=== PATIENT | female | born 2000 | race Caucasian/White ===

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

== ENCOUNTER 2020-02-28 05:00 | Emergency (ER) | payer BC, MEDICAID ==
[2020-02-28] MEDS ORDERED: TORAdol 30 mg Injection ONE (05:18)
[2020-02-28] MEDS ORDERED: TORAdol 30 mg Injection IM ONE (05:33)
[2020-02-28 06:06] VITALS: BP 120/69; PULSE 82; O2SAT 100
[2020-02-28] MEDS ORDERED: ZOFRAN ODT 4 MG PO ONE (06:24)
[2020-02-28] MEDS ORDERED: Norco 10/325 MG Tablet PO ONE (06:24)
[2020-02-28] MEDS ORDERED: ZOFRAN ODT 4 MG ONE (06:25)
[2020-02-28] MEDS ORDERED: Norco 10/325 MG Tablet ONE (06:26)
--- NOTE | 2020-02-28 06:30 | ERPHSYRPT ---
- History of Present Illness Time Seen by Provider: 02/28/20 05:25 Source: patient Exam Limitations: no limitations Patient Subjective Stated Complaint: pt states that she was going down a step at home when she lost her footing and fell on her left knee, pt states that she took tylenol at 2300 for the pain, pt states that she went to work but the pain has worsen as the night went on, pt states that her left knee has continued to swell through the night Triage Nursing Assessment: pt drove herself to the er, pt came into the er via wheelchair, pt is axo x3, pt c/o left knee pain, states pain 6/10, knee is swollen, bruising present, decreased ROM, tenderness with palpation, contusion to left knee, vital wnl Allergies/Adverse Reactions: cefdinir [From Omnicef] Allergy (Verified 02/28/20 05:12) Hx Tetanus, Diphtheria Vaccination/Date Given: No Hx Influenza Vaccination/Date Given: No Hx Pneumococcal Vaccination/Date Given: No Immunizations Up to Date: Yes Travel Risk - International Travel Have you traveled outside of the country in past 3 weeks: No - Coronavirus Screening Are you exhibiting any of the following symptoms?: No Close contact with a COVID-19 positive Pt in past 14-21 Days: No - Past Medical History Pertinent Past Medical History: Yes Neurological History: No Pertinent History ENT History: No Pertinent History Cardiac History: No Pertinent History Respiratory History: No Pertinent History Endocrine Medical History: No Pertinent History Musculoskeletal History: No Pertinent History GI Medical History: No Pertinent History History: Other Psycho-Social History: No Pertinent History Female Reproductive Disorders: No Pertinent History Other Medical History: history of histoplasmosis, kidney stones - Past Surgical History Past Surgical History: Yes Other Surgical History: bilat tubes - Social History Smoking Status: Former smoker Exposure to second hand smoke: No Drug Use: none Patient Lives Alone: No - Female History Hx Now: No - Nursing Vital Signs Nursing Vital Signs: Initial Vital Signs Temperature 98.1 F 02/28/20 05:14 Pulse Rate 86 02/28/20 05:14 Respiratory Rate 16 02/28/20 05:14 Blood Pressure 138/89 02/28/20 05:14 O2 Sat by Pulse Oximetry 98 02/28/20 05:14 Pain Scale Pain Intensity 6 - Physical Exam SpO2: 100 - Course Nursing assessment & vital signs reviewed: Yes Ordered Tests: Active Orders 24 hr Category Date Time Status KNEE (3 VIEWS) Stat Exams 02/28/20 05:49 Taken Medication Summary Generic Name Dose Route Start Last Admin Trade Name Rosemary PRN Reason Stop Dose Admin Hydrocodone Bitart/Acetaminophen 1 tab 02/28/20 06:24 Vera 10/325 Mg Tablet PO 02/28/20 06:25 STAT ONE Ondansetron HCl 4 mg 02/28/20 06:24 Zofran Odt 4 Mg PO 02/28/20 06:25 STAT ONE Discontinued Medications Generic Name Dose Route Start Last Admin Trade Name Rosemary PRN Reason Stop Dose Admin Ketorolac Tromethamine Confirm 02/28/20 05:18 Toradol 30 Mg Injection Administered 02/28/20 05:19 Dose 30 mg .ROUTE .STK-MED ONE Ketorolac Tromethamine 30 mg 02/28/20 05:33 02/28/20 05:35 Toradol 30 Mg Injection IM 02/28/20 05:34 30 mg STAT ONE Administration - Progress Progress: improved, pain not gone completely Counseled pt/family regarding: diagnosis, need for follow-up, rad results - Departure Departure Disposition: Home Clinical Impression: Contusion, knee Qualifiers: Encounter type: initial encounter Laterality: left Qualified Code(s): S80.02XA - Contusion of left knee, initial encounter Condition: Stable Critical Care Time: No Referrals: AKIRA CONROY [Primary Care Provider] - (2 days for reevaluation) DEWEY VAUGHN NP [NON-STAFF PHY W/O PRIVILEGES] - (2 days for reevaluation.) Instructions: Knee Sprain (DC) Additional Instructions: Take pain medications as needed. Follow-up with orthopedic clinic for reevaluation in 2 days. Apply ice. Return to ER for any worsening. Prescriptions: Hydrocodone/Acetaminophen [Vera 7.5-325 Tablet] 1 tab PO Q4-6HPRN PRN 3 Days #12 tablet MDD 6 PRN Reason: Pain
--- NOTE | 2020-03-01 07:37 | XRAY ---
Indication: Pain following injury. Comparison: None 4 view left knee demonstrates tiny fabella. No other bony, articular, or soft tissue abnormalities.
== END 2020-02-28 06:40 | disposition home or self-care (01) ==
LOC: ED 05:00
DX: S80.02XA Contusion of left knee, initial encounter (principal); W10.9XXA Fall (on) (from) unspecified stairs and steps, initial encounter; M25.562 Pain in left knee
CPT/HCPCS: 73562; 96372; 99284; J1885; L1830; Q0162; A9270-GY

== ENCOUNTER 2020-12-29 21:15 | Observation (INO) | payer BC, MEDICAID ==
[2020-12-29 21:42] VITALS: BP 118/69; PULSE 92; O2SAT 97
[2020-12-29 22:35] LABS: Amphetamine,Urine NEGATIVE (NEGATIVE); Barbiturate,Urine NEGATIVE (NEGATIVE); Benzodiazepine,Urine NEGATIVE (NEGATIVE); Cocaine,Urine NEGATIVE (NEGATIVE); Methadone,Urine NEGATIVE (NEGATIVE); Opiate,Urine NEGATIVE (NEGATIVE); PCP,Urine NEGATIVE (NEGATIVE); THC,Urine POSITIVE (NEGATIVE)
[2020-12-29 22:47] LABS: Appearance SLIGHTLY CLOUDY (CLEAR); Bilirubin NEGATIVE (NEGATIVE); Blood NEGATIVE Ery/ul (0-5); Epithelial Cells FEW /HPF (FEW); Glucose NEGATIVE (NEGATIVE); Ketones NEGATIVE (NEGATIVE); Leukocyte Esterase LARGE (NEGATIVE); Mucus SLIGHT /HPF (NEGATIVE); Nitrite NEGATIVE (NEGATIVE); Protein,Urine Dip NEGATIVE (Negative); Specific Gravity 1.009 (1.005-1.025); Urobilinogen 4 mg/dL (0-1)
[2020-12-29] MEDS ORDERED: Lactated Ringers 500 ML IV ONE ×2 (23:06→23:10)
[2020-12-29] MEDS ORDERED: Zofran 4 MG/2 ML VIAL IV ONE (23:07)
[2020-12-29] MEDS ORDERED: Zofran 4 MG/2 ML VIAL ONE (23:09)
[2020-12-29 23:58] LABS: Absolute Neutrophil Ct (ANC) 9.28 (1.4-6.9); BASOPHIL % 0.2 % (0.0-0.4); Basophil (Absolute #) 0.02 (0-0.4); Eosinophil % 0.3 % (0.00-5.0); Eosinophil (Absolute #) 0.04 (0-0.5); Hematocrit 35.1 % (35-47); Hemoglobin 11.6 gm/dl (12.0-16.0); Lymphocyte (Absolute #) 2.34 (1.0-4.6); Lymphocytes % 18.5 % (24.0-44.0); Mean Cell Volume 90.2 fl (78-100); Mean Corpuscular Hemoglobin 29.8 pg (26-32); Mean Platelet Volume 10.1 fl (7.5-11.0); Monocyte (Absolute #) 0.94 (0.0-1.3); Monocytes % 7.4 % (0.0-12.0); Neutrophil % 73.6 % (36.0-66.0); Platelet Count 283 K/mm3 (150-450); Red Blood Count 3.89 M/mm3 (4.1-5.4); Red Cell Distribution Width 13.1 % (11.5-14.0); White Blood Count 12.6 K/mm3 (4.0-10.5)
[2020-12-30 00:07] LABS: ALBUMIN 3.8 g/dL (3.5-5.0); ALKALINE PHOSPHATASE 92 U/L (38-126); ANION GAP 12.6 MEQ/L (5-15); BLOOD UREA NITROGEN 5 mg/dL (7-17); CHLORIDE 108 mmol/L (98-107); Calcium 8.8 mg/dL (8.4-10.2); Carbon Dioxide 19 mmol/L (22-30); Creatinine 1 0.44 mg/dL (0.52-1.04); EST GLOMERULAR FILTRATION RATE > 60.0 ML/MIN; Glucose 80 mg/dL (74-106); Potassium 3.6 mmol/L (3.5-5.1); SGOT/AST 25 U/L (14-36); SGPT/ALT 8 U/L (0-35); SODIUM 135 mmol/L (137-145)
[2020-12-30] MEDS ORDERED: ROCEPHIN 1 Gm-D5w 50 ml Bag** 1 G/50 ML IVPB IV SCH (10:00)
== END 2020-12-30 01:20 | disposition home or self-care (01) ==
LOC: MED SURG 21:15
PROVIDERS: ADMIT Obstetrics & Gynecology; ATTEND Obstetrics & Gynecology
DX: O26.892 Other specified pregnancy related conditions, second trimester (principal); Z3A.21 21 weeks gestation of pregnancy; R10.9 Unspecified abdominal pain
CPT/HCPCS: 36415; 80053; 80307; 81001; 85025; 87086; G0378; J0696; J2405

== ENCOUNTER 2021-04-19 17:27 | Inpatient (IN) | payer BC, MEDICAID ==
[2021-04-19] MEDS ORDERED: PITOCIN 30 UNITS/ LR 500 ML 30 UNITS/500 ML IV.SOLN. IV SCH (17:30)
[2021-04-19] MEDS: MOTRIN 400 MG PO PRN (19:41)
[2021-04-19] MEDS ORDERED: LANSINOH 40 GM TOP PRN (20:08)
[2021-04-19] MEDS ORDERED: NORCO 5/325 MG PO PRN (20:08)
[2021-04-19] MEDS ORDERED: Dulcolax 10 MG SUPP PR PRN (20:08)
[2021-04-19] MEDS ORDERED: CORTISONE 1% CREAM TP PRN (20:08)
[2021-04-19] MEDS ORDERED: Dermoplast Spray TP PRN (20:08)
[2021-04-19] MEDS ORDERED: Mylicon 80MG PO PRN (20:08)
[2021-04-19] MEDS ORDERED: Anucort-HC SUPPOSITORY PR PRN (20:08)
[2021-04-19 20:24] LABS: Absolute Neutrophil Ct (ANC) 8.03 (1.4-6.9); BASOPHIL % 0.1 % (0.0-0.4); Basophil (Absolute #) 0.01 (0-0.4); Eosinophil % 0.2 % (0.00-5.0); Eosinophil (Absolute #) 0.02 (0-0.5); Hematocrit 38.5 % (35-47); Hemoglobin 12.7 gm/dl (12.0-16.0); Lymphocyte (Absolute #) 2.45 (1.0-4.6); Lymphocytes % 21.2 % (24.0-44.0); Mean Cell Volume 88.5 fl (78-100); Mean Corpuscular Hemoglobin 29.2 pg (26-32); Mean Platelet Volume 10.9 fl (7.5-11.0); Monocyte (Absolute #) 1.05 (0.0-1.3); Monocytes % 9.1 % (0.0-12.0); Neutrophil % 69.4 % (36.0-66.0); Platelet Count 304 K/mm3 (150-450); Red Blood Count 4.35 M/mm3 (4.1-5.4); Red Cell Distribution Width 13.8 % (11.5-14.0); White Blood Count 11.6 K/mm3 (4.0-10.5)
[2021-04-19 20:37] LABS: Amphetamine,Urine NEGATIVE (NEGATIVE); Barbiturate,Urine NEGATIVE (NEGATIVE); Benzodiazepine,Urine NEGATIVE (NEGATIVE); Cocaine,Urine NEGATIVE (NEGATIVE); Methadone,Urine NEGATIVE (NEGATIVE); Opiate,Urine NEGATIVE (NEGATIVE); PCP,Urine NEGATIVE (NEGATIVE); THC,Urine NEGATIVE (NEGATIVE)
[2021-04-19] MEDS ORDERED: TRANEXAMIC ACID 1000 MG/10 ML 1,000 MG in Sodium Chloride 0.9% 100 ML BAG 100 ML IV ONE (21:51)
[2021-04-19] MEDS ORDERED: Sodium Chloride 0.9% 100 ML BAG 100 ML ONE (21:57)
[2021-04-19] MEDS ORDERED: TRANEXAMIC ACID 1000 MG/10 ML ONE (21:57)
[2021-04-19] MEDS ORDERED: Colace 100 MG PO SCH (22:00)
[2021-04-19 22:38] LABS: Hematocrit 31.7 % (35-47); Hemoglobin 10.4 gm/dl (12.0-16.0); Mean Cell Volume 89.8 fl (78-100); Mean Corpuscular Hemoglobin 29.5 pg (26-32); Mean Corpuscular Hgb Concent. 32.8 g/dl (32-36); Mean Platelet Volume 10.3 fl (7.5-11.0); Platelet Count 265 K/mm3 (150-450); Red Blood Count 3.53 M/mm3 (4.1-5.4); Red Cell Distribution Width 13.6 % (11.5-14.0)
[2021-04-19 23:16] LABS: ABO TYPING B; RH TYPING NEGATIVE
[2021-04-19 23:17] LABS: Antibody Screen POSITIVE (NEGATIVE)
[2021-04-20] MEDS: TYLENOL EXTRA STRENGTH 500 MG PO PRN ×3 (01:00→22:17)
[2021-04-20] MEDS: MOTRIN 400 MG PO PRN (02:55)
[2021-04-20] MEDS ORDERED: NORCO 5/325 MG PO PRN (05:21)
[2021-04-20 06:28] LABS: Absolute Neutrophil Ct (ANC) 7.03 (1.4-6.9); BASOPHIL % 0.1 % (0.0-0.4); Basophil (Absolute #) 0.01 (0-0.4); Eosinophil % 0.2 % (0.00-5.0); Eosinophil (Absolute #) 0.02 (0-0.5); Hematocrit 30.4 % (35-47); Hemoglobin 9.7 gm/dl (12.0-16.0); Lymphocyte (Absolute #) 2.55 (1.0-4.6); Lymphocytes % 23.8 % (24.0-44.0); Mean Cell Volume 90.2 fl (78-100); Mean Corpuscular Hemoglobin 28.8 pg (26-32); Mean Corpuscular Hgb Concent. 31.9 g/dl (32-36); Monocyte (Absolute #) 1.12 (0.0-1.3); Monocytes % 10.4 % (0.0-12.0); Neutrophil % 65.5 % (36.0-66.0); Platelet Count 249 K/mm3 (150-450); Red Blood Count 3.37 M/mm3 (4.1-5.4); Red Cell Distribution Width 13.8 % (11.5-14.0); White Blood Count 10.7 K/mm3 (4.0-10.5)
--- NOTE | 2021-04-20 07:40 | PCM.NOTE ---
Date and Time: 04/20/21 0739 Subjective Assessment: PPD 1 SP PT RESTING IN BED AND DOING WELL VSS AFEBRILE ABD; SOFT UTERUS; FIRM LOCHIA; MILD HGB; 9.7 A/P SP PPD 1 DC HOME TOMORROW FU OFFICE IN 3 WKS WITH HER PROVIDER OBJECTIVE DATA Vital Signs: Vital Signs - 24 hr Temp Pulse Resp BP BP 04/20/21 02:45 97.8 F 86 18 109/69 04/20/21 00:00 93 H 104/62 04/19/21 23:30 84 104/64 04/19/21 22:29 85 18 100/61 04/19/21 21:25 93 H 99/61 04/19/21 17:55 97.1 F 93 H 18 126/82 04/19/21 17:27 97.1 F 93 H 18 126/82 Pain Assessment - Last Documented Pain Intensity [Lower] 10 Pain Intensity 6 Pain Scale Used 0-10 Pain Scale Intake and Output: Intake & Output 04/17/21 04/18/21 04/19/21 04/20/21 11:59 11:59 11:59 11:59 Weight 92.986 kg Lab Results: Lab Results-Last 24 Hours 04/19/21 04/19/21 04/19/21 Range/Units 20:04 20:04 21:00 WBC 11.6 H (4.0-10.5) K/mm3 RBC 4.35 (4.1-5.4) M/mm3 Hgb 12.7 (12.0-16.0) gm/dl Hct 38.5 (35-47) % MCV 88.5 (78-100) fl MCH 29.2 (26-32) pg MCHC 33.0 (32-36) g/dl RDW 13.8 (11.5-14.0) % Plt Count 304 (150-450) K/mm3 MPV 10.9 (7.5-11.0) fl Gran % 69.4 H (36.0-66.0) % Eos # (Auto) 0.02 (0-0.5) Absolute Lymphs (auto) 2.45 (1.0-4.6) Absolute Monos (auto) 1.05 (0.0-1.3) Lymphocytes % 21.2 L (24.0-44.0) % Monocytes % 9.1 (0.0-12.0) % Eosinophils % 0.2 (0.00-5.0) % Basophils % 0.1 (0.0-0.4) % Absolute Granulocytes 8.03 H (1.4-6.9) Basophils # 0.01 (0-0.4) Urine Opiates Level NEGATIVE (NEGATIVE) Ur Methadone NEGATIVE (NEGATIVE) Urine Barbiturates NEGATIVE (NEGATIVE) Ur Phencyclidine (PCP) NEGATIVE (NEGATIVE) Urine Amphetamine NEGATIVE (NEGATIVE) U Benzodiazepine Level NEGATIVE (NEGATIVE) Urine Cocaine NEGATIVE (NEGATIVE) Urine Marijuana (THC) NEGATIVE (NEGATIVE) ABO Group B Rh Factor NEGATIVE Antibody Screen POSITIVE (NEGATIVE) 04/19/21 04/20/21 Range/Units 22:30 05:00 WBC 13.0 H 10.7 H (4.0-10.5) K/mm3 RBC 3.53 L 3.37 L (4.1-5.4) M/mm3 Hgb 10.4 L 9.7 L (12.0-16.0) gm/dl Hct 31.7 L 30.4 L (35-47) % MCV 89.8 90.2 (78-100) fl MCH 29.5 28.8 (26-32) pg MCHC 32.8 31.9 L (32-36) g/dl RDW 13.6 13.8 (11.5-14.0) % Plt Count 265 249 (150-450) K/mm3 MPV 10.3 11.0 (7.5-11.0) fl Gran % 65.5 (36.0-66.0) % Eos # (Auto) 0.02 (0-0.5) Absolute Lymphs (auto) 2.55 (1.0-4.6) Absolute Monos (auto) 1.12 (0.0-1.3) Lymphocytes % 23.8 L (24.0-44.0) % Monocytes % 10.4 (0.0-12.0) % Eosinophils % 0.2 (0.00-5.0) % Basophils % 0.1 (0.0-0.4) % Absolute Granulocytes 7.03 H (1.4-6.9) Basophils # 0.01 (0-0.4) Urine Opiates Level (NEGATIVE) Ur Methadone (NEGATIVE) Urine Barbiturates (NEGATIVE) Ur Phencyclidine (PCP) (NEGATIVE) Urine Amphetamine (NEGATIVE) U Benzodiazepine Level (NEGATIVE) Urine Cocaine (NEGATIVE) Urine Marijuana (THC) (NEGATIVE) ABO Group Rh Factor Antibody Screen (NEGATIVE) Multi-Disciplinary Progress Notes: Multi-Disciplinary Progress Notes 04/19/21 17:52 (created 04/19/21 18:14) Respiratory Note by Yaneth Bonilla Called to Ob for patient who is dilated to 10 that was just admitted and physician was no here yet. Baby born and crying upon .Baby dried and stimulated. O2 sat 83% and increased to 98% at 9 minutes. Apgars 8/9 Initialized on 04/19/21 18:14 - END OF NOTE Assessment/Plan (1) Vaginal delivery Current Visit: Yes Status: Acute Code(s): O80 - ENCOUNTER FOR FULL-TERM UNCOMPLICATED DELIVERY
[2021-04-20] MEDS ORDERED: FERREX 150 PO SCH (10:00)
--- NOTE | 2021-04-20 16:35 | PCM.HP ---
History of Present Illness - Chief Complaint Chief Complaint: Labor Patient History of Present Illness: is a 20 year old female. 20 yo iup 37 plus weeks with no signific pmhx presented to labor delivery being fully dilated who sees a provider in [place] for care. states her care has been uneventful. denies any medical issues at this time other than coming off quarantine from covid couple days ago vss afebrle review of system; as above physical exam lungs; cta heart; rrr abd; gravid exam; fully dilated ext; no cyanosis or edema a/p iup 37 plus weeks in labor expectant management Medications & Allergies Home Medications: Home Medication List Vits W-Ca,Fe,FA(<1Mg) [] 1 tab PO DAILY 12/29/20 [History Confirmed 04/19/21] Allergies/Adverse Reactions: Allergies Allergy/AdvReac Type Severity Reaction Status Date / Time cefdinir [From Omnicef] Allergy Verified 02/28/20 05:12 - Past Medical History Past Medical History: Yes Neurological History: No Pertinent History ENT History: No Pertinent History Cardiac History: No Pertinent History Respiratory History: No Pertinent History Endocrine Medical History: No Pertinent History Musculoskelatal History: No Pertinent History GI Medical History: No Pertinent History History: Other Pyscho-Social History: No Pertinent History Reproductive Disorders: No Pertinent History Comment: history of histoplasmosis, kidney stones - Female History Expected Date of Delivery: 05/08/21 - Past Surgical History Past Surgical History: Yes Neuro Surgical History: No Pertinent History Cardiac History: No Pertinent History Respiratory Surgery: No Pertinent History GI Surgical History: No Pertinent History Genitourinary Surgical Hx: Kidney Transplant Musculskeletal Surgical Hx: No Pertinent History Female Surgical History: No Pertinent History Other Surgical History: bilat tubes, stints for kidney stones - Social History Smoking Status: Never smoker Exposure to second hand smoke: No Alcohol: None Drug Use: none - Physical Exam Vital Signs: Vital Signs - 24 hr Temp Pulse Resp BP BP 04/20/21 08:00 98.4 F 76 18 115/63 04/20/21 02:45 97.8 F 86 18 109/69 04/20/21 00:00 93 H 104/62 04/19/21 23:30 84 104/64 04/19/21 22:29 85 18 100/61 04/19/21 21:25 93 H 9904/19/21 17:55 97.1 F 93 H 18 126/82 04/19/21 17:27 97.1 F 93 H 18 126/82 General Appearance: no apparent distress, moderate distress Respiratory Exam: normal breath sounds Cardiovascular Exam: regular rate/rhythm Gastrointestinal/Abdomen Exam: other Pelvic Exam: other Extremity Exam: normal inspection Results - Labs Lab/Micro Results: Lab Results-Last 24 Hours 04/19/21 04/19/21 04/19/21 Range/Units 20:04 20:04 21:00 WBC 11.6 H (4.0-10.5) K/mm3 RBC 4.35 (4.1-5.4) M/mm3 Hgb 12.7 (12.0-16.0) gm/dl Hct 38.5 (35-47) % MCV 88.5 (78-100) fl MCH 29.2 (26-32) pg MCHC 33.0 (32-36) g/dl RDW 13.8 (11.5-14.0) % Plt Count 304 (150-450) K/mm3 MPV 10.9 (7.5-11.0) fl Gran % 69.4 H (36.0-66.0) % Eos # (Auto) 0.02 (0-0.5) Absolute Lymphs (auto) 2.45 (1.0-4.6) Absolute Monos (auto) 1.05 (0.0-1.3) Lymphocytes % 21.2 L (24.0-44.0) % Monocytes % 9.1 (0.0-12.0) % Eosinophils % 0.2 (0.00-5.0) % Basophils % 0.1 (0.0-0.4) % Absolute Granulocytes 8.03 H (1.4-6.9) Basophils # 0.01 (0-0.4) Urine Opiates Level NEGATIVE (NEGATIVE) Ur Methadone NEGATIVE (NEGATIVE) Urine Barbiturates NEGATIVE (NEGATIVE) Ur Phencyclidine (PCP) NEGATIVE (NEGATIVE) Urine Amphetamine NEGATIVE (NEGATIVE) U Benzodiazepine Level NEGATIVE (NEGATIVE) Urine Cocaine NEGATIVE (NEGATIVE) Urine Marijuana (THC) NEGATIVE (NEGATIVE) ABO Group B Rh Factor NEGATIVE Antibody Screen POSITIVE (NEGATIVE) Screen 04/19/21 04/19/21 04/20/21 Range/Units 21:00 22:30 05:00 WBC 13.0 H 10.7 H (4.0-10.5) K/mm3 RBC 3.53 L 3.37 L (4.1-5.4) M/mm3 Hgb 10.4 L 9.7 L (12.0-16.0) gm/dl Hct 31.7 L 30.4 L (35-47) % MCV 89.8 90.2 (78-100) fl MCH 29.5 28.8 (26-32) pg MCHC 32.8 31.9 L (32-36) g/dl RDW 13.6 13.8 (11.5-14.0) % Plt Count 265 249 (150-450) K/mm3 MPV 10.3 11.0 (7.5-11.0) fl Gran % 65.5 (36.0-66.0) % Eos # (Auto) 0.02 (0-0.5) Absolute Lymphs (auto) 2.55 (1.0-4.6) Absolute Monos (auto) 1.12 (0.0-1.3) Lymphocytes % 23.8 L (24.0-44.0) % Monocytes % 10.4 (0.0-12.0) % Eosinophils % 0.2 (0.00-5.0) % Basophils % 0.1 (0.0-0.4) % Absolute Granulocytes 7.03 H (1.4-6.9) Basophils # 0.01 (0-0.4) Urine Opiates Level (NEGATIVE) Ur Methadone (NEGATIVE) Urine Barbiturates (NEGATIVE) Ur Phencyclidine (PCP) (NEGATIVE) Urine Amphetamine (NEGATIVE) U Benzodiazepine Level (NEGATIVE) Urine Cocaine (NEGATIVE) Urine Marijuana (THC) (NEGATIVE) ABO Group Rh Factor Antibody Screen (NEGATIVE) Screen SEE SEPARATE REPORT Assessment/Plan (1) Vaginal delivery Current Visit: Yes Status: Acute Code(s): O80 - ENCOUNTER FOR FULL-TERM UNCOMPLICATED DELIVERY (2) Labor abnormal Current Visit: Yes Status: Acute Code(s): O62.9 - ABNORMALITY OF FORCES OF LABOR, UNSPECIFIED (3) Current Visit: No Status: Acute Qualifiers: Weeks of gestation: 37 weeks Qualified Code(s): Z3A.37 - 37 weeks gestation of Code(s): Z34.90 - ENCNTR FOR SUPRVSN OF NORMAL , UNSP, UNSP TRIMESTER
--- NOTE | 2021-04-20 16:38 | PCM.DS ---
Discharge Summary Date of Admission: 04/19/21 17:27 Admitting Physician: HAJA MILLER DO Primary Care Provider: NO FAMILY DOCTOR Allergies Allergies cefdinir [From Omnicef] Allergy (Verified 02/28/20 05:12) Hospital Summary - Hospital Course Hospital Course: pt admitted on apr 19 for being in labor who sees a provider in [place] and denies any medical issues at this time and states care has been uneventful. pt delivered live baby boy upon arrival without complication. during period did well and had stable hgb level and at this time pt stable for discharge with fu with provider in 3 wks. all questions answered to her satisfaction. perineum intact. - Vitals & Intake/Output Vital Signs: Vital Signs Temperature 98.4 F 04/20/21 08:00 Pulse Rate 76 04/20/21 08:00 Respiratory Rate 18 04/20/21 08:00 Blood Pressure 115/63 04/20/21 08:00 O2 Sat by Pulse Oximetry Intake & Output: Intake & Output 04/18/21 04/19/21 04/20/21 04/21/21 11:59 11:59 11:59 11:59 Weight 92.986 kg - Lab Result Diagrams: 04/20/21 05:00 Lab Results-Last 24 Hrs: Lab Results-Last 24 Hours 04/19/21 04/19/21 04/19/21 Range/Units 20:04 20:04 21:00 WBC 11.6 H (4.0-10.5) K/mm3 RBC 4.35 (4.1-5.4) M/mm3 Hgb 12.7 (12.0-16.0) gm/dl Hct 38.5 (35-47) % MCV 88.5 (78-100) fl MCH 29.2 (26-32) pg MCHC 33.0 (32-36) g/dl RDW 13.8 (11.5-14.0) % Plt Count 304 (150-450) K/mm3 MPV 10.9 (7.5-11.0) fl Gran % 69.4 H (36.0-66.0) % Eos # (Auto) 0.02 (0-0.5) Absolute Lymphs (auto) 2.45 (1.0-4.6) Absolute Monos (auto) 1.05 (0.0-1.3) Lymphocytes % 21.2 L (24.0-44.0) % Monocytes % 9.1 (0.0-12.0) % Eosinophils % 0.2 (0.00-5.0) % Basophils % 0.1 (0.0-0.4) % Absolute Granulocytes 8.03 H (1.4-6.9) Basophils # 0.01 (0-0.4) Urine Opiates Level NEGATIVE (NEGATIVE) Ur Methadone NEGATIVE (NEGATIVE) Urine Barbiturates NEGATIVE (NEGATIVE) Ur Phencyclidine (PCP) NEGATIVE (NEGATIVE) Urine Amphetamine NEGATIVE (NEGATIVE) U Benzodiazepine Level NEGATIVE (NEGATIVE) Urine Cocaine NEGATIVE (NEGATIVE) Urine Marijuana (THC) NEGATIVE (NEGATIVE) ABO Group B Rh Factor NEGATIVE Antibody Screen POSITIVE (NEGATIVE) Screen 04/19/21 04/19/21 04/20/21 Range/Units 21:00 22:30 05:00 WBC 13.0 H 10.7 H (4.0-10.5) K/mm3 RBC 3.53 L 3.37 L (4.1-5.4) M/mm3 Hgb 10.4 L 9.7 L (12.0-16.0) gm/dl Hct 31.7 L 30.4 L (35-47) % MCV 89.8 90.2 (78-100) fl MCH 29.5 28.8 (26-32) pg MCHC 32.8 31.9 L (32-36) g/dl RDW 13.6 13.8 (11.5-14.0) % Plt Count 265 249 (150-450) K/mm3 MPV 10.3 11.0 (7.5-11.0) fl Gran % 65.5 (36.0-66.0) % Eos # (Auto) 0.02 (0-0.5) Absolute Lymphs (auto) 2.55 (1.0-4.6) Absolute Monos (auto) 1.12 (0.0-1.3) Lymphocytes % 23.8 L (24.0-44.0) % Monocytes % 10.4 (0.0-12.0) % Eosinophils % 0.2 (0.00-5.0) % Basophils % 0.1 (0.0-0.4) % Absolute Granulocytes 7.03 H (1.4-6.9) Basophils # 0.01 (0-0.4) Urine Opiates Level (NEGATIVE) Ur Methadone (NEGATIVE) Urine Barbiturates (NEGATIVE) Ur Phencyclidine (PCP) (NEGATIVE) Urine Amphetamine (NEGATIVE) U Benzodiazepine Level (NEGATIVE) Urine Cocaine (NEGATIVE) Urine Marijuana (THC) (NEGATIVE) ABO Group Rh Factor Antibody Screen (NEGATIVE) Screen SEE SEPARATE REPORT - Procedures and Test Procedures and Tests throughout Hospitalization: Therapy Orders & Screens 04/19/21 18:17 Standby STAT Comment: Final Diagnosis/Problem List - Final Discharge Diagnosis/Problem (1) Vaginal delivery Current Visit: Yes Status: Acute Code(s): O80 - ENCOUNTER FOR FULL-TERM UNCOMPLICATED DELIVERY (2) Labor abnormal Current Visit: Yes Status: Acute Code(s): O62.9 - ABNORMALITY OF FORCES OF LABOR, UNSPECIFIED (3) Current Visit: No Status: Acute Code(s): Z34.90 - ENCNTR FOR SUPRVSN OF NORMAL , UNSP, UNSP TRIMESTER - Discharge Disposition: Home, Self-Care Condition: Stable Prescriptions: No Action Vits W-Ca,Fe,FA(<1Mg) [] 1 tab PO DAILY Follow up with: DOCTOR,NO FAMILY [Primary Care Provider] -
[2021-04-20] MEDS ORDERED: Rhogam Plus 300 MCG IM ONE (20:14)
[2021-04-21 01:32] VITALS: BP 107/73; PULSE 113
[2021-04-21 09:04] LABS: RPR Non Reactive (Non Reactive)
[2021-04-21 13:23] LABS: HIV Screen 4th Generation wRfx Non Reactive (Non Reactive)
[2021-04-22 15:58] LABS: Rubella Antibodies, IgG 2.94 index (Immune >0.99)
== END 2021-04-20 23:15 | disposition home or self-care (01) | DRG 807 ==
LOC: OBSVTOIN 17:27 → MED SURG 17:27 → OB 17:28
PROVIDERS: ADMIT Obstetrics & Gynecology; ATTEND Obstetrics & Gynecology
PROC: 10E0XZZ Delivery of Products of Conception, External Approach (ICD-10-PCS; principal; 2021-04-19)
DX: O80 Encounter for full-term uncomplicated delivery (principal); Z37.0 Single live birth; Z3A.37 37 weeks gestation of pregnancy
CPT/HCPCS: 36415; 59400; 80307; 85025; 85027; 85461; 86592; 86762; 86850; 86900; 86901; 87389; 94799; 96372; G0378; J2790; A9270-GY